=== PATIENT | female | born 1995 | race Caucasian/White ===

== ENCOUNTER 2020-11-26 17:51 | Emergency (ER) | payer OTHER ==
[2020-11-26 18:02] VITALS: TEMP 98.9
[2020-11-26] MEDS ORDERED: SODIUM CHLORIDE 0.9% 2,000 ML IV STA (18:18)
[2020-11-26 19:07] LABS: Basophils % (A) 1 %; Eosinophils # (A) 0.3 k/uL (0-0.7); Eosinophils % (A) 4 %; HCT 33.3 % (34.0-46.0); HGB 11.3 gm/dL (11.4-16.0); Lymphocytes # (A) 3.1 k/uL (1.0-4.8); Lymphocytes % (A) 46 %; MCH 29.4 pg (25.0-35.0); MCHC 34.1 g/dL (31.0-37.0); MCV 86.2 fL (80.0-100.0); Mean Platelet Volume 7.4; Monocytes # (A) 0.4 k/uL (0-1.0); Monocytes % (A) 6 %; Neutrophils # (A) 2.9 k/uL (1.3-7.7); Neutrophils % (A) 42 %; Platelet Count 270 k/uL (150-450); RBC 3.86 m/uL (3.80-5.40); RDW 13.8 % (11.5-15.5); WBC 6.9 k/uL (3.8-10.6)
[2020-11-26 19:18] LABS: ALT 524 U/L (4-34); AST 326 U/L (14-36); Acetaminophen <10.0 ug/mL; African American GFR (CKD) >90 (>60 ml/min/1.73 sqM); Albumin 3.1 g/dL (3.5-5.0); Alcohol <10 mg/dL; Alkaline Phosphatase 133 U/L (38-126); Anion Gap 5 mmol/L; Blood Urea Nitrogen 9 mg/dL (7-17); Calcium 8.4 mg/dL (8.4-10.2); Carbon Dioxide 25 mmol/L (22-30); Chloride 109 mmol/L (98-107); Glucose 100 mg/dL (74-99); Non-African American GFR(CKD) >90 (>60 ml/min/1.73 sqM); Potassium 3.6 mmol/L (3.5-5.1); Salicylate <1.0 mg/dL; Sodium 139 mmol/L (137-145); Total Bilirubin 0.3 mg/dL (0.2-1.3); Total Protein 6.4 g/dL (6.3-8.2)
--- NOTE | 2020-11-26 21:34 | US ---
EXAMINATION TYPE: US abdomen limited DATE OF EXAM: 11/26/2020 COMPARISON: NONE CLINICAL HISTORY: right upper quadrant, elevated liver enzymes. Elevated liver enzymes. Hx cholecyste ctomy. EXAM MEASUREMENTS: Liver Length: 19.8 cm CBD: 1.0 cm Right Kidney: 12.2 x 5.9 x 4.4 cm Limited due to gas. Pancreas: Limited due to gas. Duct measures 3.2 mm at pancreatic body. Liver: Appears enlarged. Gallbladder: Removed. Evidence for sonographic Elliott's sign: No CBD: Measures 1.0 cm post-cholecystectomy Right Kidney: No hydronephrosis or masses seen. Measures upper limits of normal versus minimally enl arged. IMPRESSION: Cholecystectomy. No dilated ducts.
[2020-11-26 21:48] VITALS: RESP 16
--- NOTE | 2020-11-26 22:36 | ED ---
Overdose HPI - General Chief Complaint: Overdose Stated Complaint: overdose Time Seen by Provider: 11/26/20 18:00 Source: patient, EMS Mode of arrival: EMS Limitations: altered mental status - History of Present Illness Initial Comments: 25-year-old female with past medical history of heroin and prescription drug abuse who presents emergency room from [place]. Patient was going there today for rehab and reports that she snorted 1 g of heroin and took 4 mg of Xanax just prior to going there. States this was an attempt to get high and denies wanting to hurt herself. Triage at [place] noticed the patient was altered and sedated. Because of this, they did transfer her to the emergency department. She denies abusing any other illicit drugs or prescription medications. No alcohol use. No Narcan was administered by EMS. She denies c oncern for . No other alleviating, precipitating or modifying factors - Related Data Home Medications Medication Instructions Recorded Confirmed Acyclovir 400 mg PO TID 11/26/20 11/26/20 Allergies Allergy/AdvReac Type Severity Reaction Status Date / Time codeine AdvReac Rash/Hives Verified 11/26/20 18:50 Review of Systems ROS Statement: Those systems with pertinent positive or pertinent negative responses have been documented in the HPI. ROS Other: All systems not noted in ROS Statement are negative. Past Medical History Past Medical History: No Reported History History of Any Multi-Drug Resistant Organisms: None Reported Past Surgical History: Cholecystectomy Past Psychological History: Anxiety, Depression Smoking Status: Current every day smoker Past Alcohol Use History: None Reported Past Drug Use History: Heroin, Marijuana, Prescription Drug Abuse General Exam Limitations: altered mental status General appearance: lethargic, other (desheveled) Head exam: Present: atraumatic, normocephalic, normal inspection Eye exam: Present: normal appearance, PERRL, EOMI, other (sluggish). Absent: scleral icterus, conjunctival injection, periorbital swelling ENT exam: Present: normal exam, mucous membranes moist Neck exam: Present: normal inspection. Absent: tenderness, meningismus, lymphadenopathy Respiratory exam: Present: normal lung sounds bilaterally. Absent: respiratory distress, wheezes, rales, rhonchi, stridor Cardiovascular Exam: Present: regular rate, normal rhythm, normal heart sounds. Absent: systolic murmur, diastolic murmur, rubs, gallop, clicks GI/Abdominal exam: Present: soft, normal bowel sounds. Absent: distended, tenderness, guarding, rebound, rigid Neurological exam: Present: altered Psychiatric exam: Present: flat affect Skin exam: Present: warm, diaphoretic Course Vital Signs 11/26/20 11/26/20 11/26/20 17:57 20:32 21:47 Temperature 98.9 F Pulse Rate 88 81 88 Respiratory 12 18 16 Rate Blood Pressure 132/66 114/87 103/59 O2 Sat by Pulse 100 100 100 Oximetry 11/26/20 23:04 Temperature 98.9 F Pulse Rate 103 H Respiratory 16 Rate Blood Pressure 101/63 O2 Sat by Pulse 100 Oximetry Medical Decision Making - Medical Decision Making Upon arrival patient the patient is placed into room 4. A thorough history and physical exam is performed. IV had been established to EMS. Patient was given a 2 L bolus of normal saline. Laboratory studies are conducted. I did request a urine sample. Laboratory studies reveal an AST of 326 and a ALT of 524. Parth bustos denies any abdominal pain. She is status post cholecystectomy. Patient is not intoxicated and denies alcohol use. She also denies use of Tylenol. Abdominal ultrasound is performed and demonstrates no acute findings. Patient is observed in the emergency department for 5.5 hours. She is able to wake up, converse and eat food. She returns to her baseline level of consciousness. At this time the patient will be discharged back to [place] as this is where she wants to go for treatment. Patient is asked to return to the emergency room for any new or worsening symptoms. Must have her liver enzymes rechecked in 1-2 weeks by her primary care doctor. Patient discharged home in stable condition - Lab Data Result diagrams: 11/26/20 18:48 11/26/20 18:48 Lab Results 11/26/20 11/26/20 Range/Units 18:48 18:48 WBC 6.9 (3.8-10.6) k/uL RBC 3.86 (3.80-5.40) m/uL Hgb 11.3 L (11.4-16.0) gm/dL Hct 33.3 L (34.0-46.0) % MCV 86.2 (80.0-100.0) fL MCH 29.4 (25.0-35.0) pg MCHC 34.1 (31.0-37.0) g/dL RDW 13.8 (11.5-15.5) % Plt Count 270 (150-450) k/uL MPV 7.4 Neutrophils % 42 % Lymphocytes % 46 % Monocytes % 6 % Eosinophils % 4 % Basophils % 1 % Neutrophils # 2.9 (1.3-7.7) k/uL Lymphocytes # 3.1 (1.0-4.8) k/uL Monocytes # 0.4 (0-1.0) k/uL Eosinophils # 0.3 (0-0.7) k/uL Basophils # 0.0 (0-0.2) k/uL Sodium 139 (137-145) mmol/L Potassium 3.6 (3.5-5.1) mmol/L Chloride 109 H (98-107) mmol/L Carbon Dioxide 25 (22-30) mmol/L Anion Gap 5 mmol/L BUN 9 (7-17) mg/dL Creatinine 0.53 (0.52-1.04) mg/dL Est GFR (CKD-EPI)AfAm >90 (>60 ml/min/1.73 sqM) Est GFR (CKD-EPI)NonAf >90 (>60 ml/min/1.73 sqM) Glucose 100 H (74-99) mg/dL Calcium 8.4 (8.4-10.2) mg/dL Total Bilirubin 0.3 (0.2-1.3) mg/dL AST 326 H (14-36) U/L ALT 524 H (4-34) U/L Alkaline Phosphatase 133 H (38-126) U/L Total Protein 6.4 (6.3-8.2) g/dL Albumin 3.1 L (3.5-5.0) g/dL Salicylates <1.0 mg/dL Acetaminophen <10.0 ug/mL Serum Alcohol <10 mg/dL - EKG Data EKG Comments: EKG demonstrates a sinus rhythm with a ventricular rate of 76. NM interval 190. QRS 88. QTC of 486. No acute ST segment elevations or depressions Disposition Clinical Impression: Accidental drug overdose, Transaminitis Disposition: HOME SELF-CARE Condition: Stable Instructions (If sedation given, give patient instructions): Adult Overdose (ED) Additional Instructions: I highly recommend that you stop using any ilicit drugs. Your liver enzymes were high and need to be rechecked by your doctor in 1-2 weeks. Return to the ED for any new or worsening symptoms Is patient prescribed a controlled substance at d/c from ED?: No Referrals: None,Stated [Primary Care Provider] - 1-2 days Time of Disposition: 22:36
[2020-11-26 23:05] VITALS: BP 101/63; PULSE 103
== END 2020-11-27 01:14 | disposition home or self-care (01) ==
LOC: EC 17:51
DX: T40.1X1A Poisoning by heroin, accidental (unintentional), initial encounter (principal); F41.9 Anxiety disorder, unspecified; F32.9 Major depressive disorder, single episode, unspecified; F17.200 Nicotine dependence, unspecified, uncomplicated; F12.90 Cannabis use, unspecified, uncomplicated
CPT/HCPCS: 93005; 80053; 85025; 80143; 80179; 76705; 99284; 96360; 96361; G0480; 80320